=== PATIENT | female | born 1975 ===

== ENCOUNTER 2019-01-27 10:27 | Emergency (ER) | payer OTHER ==
[~2019-01-27] VITALS: Ht 160 cm; Wt 72.6 kg
[~2019-01-27 10:27] MED LIST: TYLENOL-CODEINE1 TAB PO
[2019-01-27] MEDS ORDERED: SIMVASTATIN10 MG (10:45)
[2019-01-27] MEDS ORDERED: BUTALB-ACETAMI1 EAC2 (10:45)
== END 2019-01-27 15:56 | disposition home or self-care (01) ==
LOC: ER 10:27
DX: R10.13 Epigastric pain (principal)